=== PATIENT | female | born 1970 | race Caucasian/White ===

== ENCOUNTER → 2017-08-22 | Outpatient (REF) | payer OTHER ==
[2017-08-22 16:14] LABS: CHLAMYDIA DNA AMPLIFICATION NEGATIVE (NEGATIVE); GC DNA AMPLIFICATION NEGATIVE (NEGATIVE)
== END ==
LOC: M SFHCWAGY 11:45
DX: Z12.4 Encounter for screening for malignant neoplasm of cervix (principal); Z11.3 Encounter for screening for infections with a predominantly sexual mode of transmission

== ENCOUNTER → 2017-08-22 | Outpatient (CLI) | payer OTHER | LOC: M WHC 10:47 | DX: Z12.31 Encounter for screening mammogram for malignant neoplasm of breast (principal) | CPT/HCPCS: 77067 ==